=== PATIENT | male | born 1960 | race Caucasian/White ===

== ENCOUNTER 2016-12-19 13:24 | Emergency (ER) | payer OTHER ==
[~2016-12-19 13:24] MED LIST: BENTYL20 MG; CENTRUM SILVER PO; EFFEXOR PO; GINGER ROOT1 GM PO; LORTAB PO; MAGNESIUM250 M1; NATURAL VITA400 UNI3 PO; OMEPRAZOLE20 M1; PHENERGAN12.5 M1; PHENERGAN25 M1; PHENERGAN25 MG PO; TRAZODONE PO; TRENTAL400 MG; ZENPEP DR 20,01 EACH PO; ZOFRAN PO; [UNRECOGNIZED DRUG - OTHER]
== END 2016-12-19 14:08 | disposition home or self-care (01) ==
LOC: SED 13:24
DX: S40.862A Insect bite (nonvenomous) of left upper arm, initial encounter (principal); S20.362A Insect bite (nonvenomous) of left front wall of thorax, initial encounter; L03.112 Cellulitis of left axilla; L03.313 Cellulitis of chest wall; F32.9 Major depressive disorder, single episode, unspecified; F41.9 Anxiety disorder, unspecified; Z79.899 Other long term (current) drug therapy; Z88.8 Allergy status to other drugs, medicaments and biological substances; Z88.1 Allergy status to other antibiotic agents; W57.XXXA Bitten or stung by nonvenomous insect and other nonvenomous arthropods, initial encounter
CPT/HCPCS: 99282